=== PATIENT | male | born 1945 | race Caucasian/White ===

== ENCOUNTER → 2017-02-19 | Outpatient (CLI) | payer MEDICARE, BC ==
[~2017-02-19] MED LIST: ATORVASTATIN CA10 MG PO; BENADRYL25 MG PO; CELEBREX200 MG PO; CENTRUM SILVER1 EAC3 PO; CIPRO500 MG PO; COUMADIN2 MG PO; FISH OIL 1,0001 EAC7 PO; HYDROCHLOROTH12.5 M3 PO; HYDROCODON-ACE1 EAC9 PO; LISINOPRIL10 MG PO; LISINOPRIL20 MG PO; LISINOPRIL40 MG PO; LITE COAT ASPI325 M1 PO; METOPROLOL TART25 MG PO; OXYCODONE HCL5 MG PO; PRESERVISION T1 EACH PO; PROCHLORPERAZIN10 MG PO; RANITIDINE HCL300 MG PO; SENNA-TIME S T1 EACH PO; TYLENOL EXTRA500 MG PO; TYLENOL WITH C1 EACH PO; VITAMIN B-6200 MG PO; VITAMIN B12 100MCG PO; VITAMIN D1000 INTUN PO; VITAMIN D5000 UNIT PO; XARELTO10 MG PO
== END | disposition home or self-care (01) ==
LOC: CDC 15:12
DX: R00.1 Bradycardia, unspecified (principal); I49.1 Atrial premature depolarization; R94.31 Abnormal electrocardiogram [ECG] [EKG]; I25.10 Atherosclerotic heart disease of native coronary artery without angina pectoris
CPT/HCPCS: 93000

== ENCOUNTER 2017-03-11 06:31 | Day surgery (SDC) | payer OTHER, BC ==
[~2017-03-11] VITALS: Ht 177.8 cm; Wt 110.0 kg
[~2017-03-11 06:31] MED LIST changes: +AMLODIPINE BESYL5 MG PO; +BAYER CHEWABLE81 MG PO; +CALCIUM 500 MG1 EACH PO; +FUROSEMIDE80 MG PO; +VITAMIN B-12500 MC5 SL; +[UNRECOGNIZED DRUG - OTHER] PO
[2017-03-11 07:01] VITALS: BP 157/78
[2017-03-11 07:14] LABS: HEMATOCRIT 38.4 % (38.0-50.0); MCH 32.8 PG (29.0-34.0); MCHC 34.4 G/DL (30.0-36.0); MCV 95.5 FL (86-99); MEAN PLAT.VOLUME 9.7 uM^3 (9.0-12.4); PLATELET COUNT 221 K/uL (156-360); RBC DIS.WIDTH-CV 13.5 % (11.8-14.6); RBC DIS.WIDTH-SD 47.9 % (39-53); RED BLOOD COUNT 4.02 M/uL (4.00-5.50); WHITE BLOOD COUNT 5.4 K/uL (4.1-10.2)
[2017-03-11 07:29] LABS: ANION GAP 11 MEQ/L (2-14); CHLORIDE 105 MEQ/L (99-109); POTASSIUM 4.2 MEQ/L (3.7-5.4); SAMPLE HEMOLYSIS CHECK 0; SAMPLE ICTERIC CHECK 0; SAMPLE LIPEMIA CHECK 0; SODIUM 139 MEQ/L (136-147)
[2017-03-11 07:34] LABS: GFR ESTIMATE (CALCULATED) 20 mL/min/; GLUCOSE 104 mg/dL (70-99); UREA NITROGEN (BUN) 43 mg/dL (9-23)
[2017-03-11 12:03] VITALS: BP 136/67
[2017-03-11 12:55] VITALS: BP 145/63
== END 2017-03-11 13:17 | disposition home or self-care (01) ==
LOC: SDC 06:31
PROVIDERS: Surgery
DX: I12.0 Hypertensive chronic kidney disease with stage 5 chronic kidney disease or end stage renal disease (principal); N18.6 End stage renal disease; I25.10 Atherosclerotic heart disease of native coronary artery without angina pectoris; Z95.5 Presence of coronary angioplasty implant and graft; K21.9 Gastro-esophageal reflux disease without esophagitis; M19.90 Unspecified osteoarthritis, unspecified site; Z85.46 Personal history of malignant neoplasm of prostate; Z85.51 Personal history of malignant neoplasm of bladder; Z92.21 Personal history of antineoplastic chemotherapy; Z92.3 Personal history of irradiation; Z87.891 Personal history of nicotine dependence; Z96.641 Presence of right artificial hip joint; Z79.82 Long term (current) use of aspirin
CPT/HCPCS: 80048; 85027; J0690; J1644; J2720

== ENCOUNTER 2018-02-15 18:21 | Emergency (ER) | payer OTHER, BC ==
[~2018-02-15] VITALS: Ht 177.8 cm; Wt 106.1 kg
[2018-02-15 18:26] VITALS: BP 132/72
== END 2018-02-15 20:08 | disposition home or self-care (01) ==
LOC: EME 18:21
PROC: 0HQLXZZ Repair Left Lower Leg Skin, External Approach (ICD-10-PCS; principal; 2018-02-15)
DX: S81.812A Laceration without foreign body, left lower leg, initial encounter (principal); W26.9XXA Contact with unspecified sharp object(s), initial encounter; I48.91 Unspecified atrial fibrillation; Z79.01 Long term (current) use of anticoagulants; Z96.649 Presence of unspecified artificial hip joint; Z85.831 Personal history of malignant neoplasm of soft tissue; Z87.891 Personal history of nicotine dependence
CPT/HCPCS: 99281; 99285

== ENCOUNTER 2018-02-16 22:41 | Emergency (ER) | payer OTHER, BC ==
[~2018-02-16] VITALS: Ht 177.8 cm; Wt 106.5 kg
[2018-02-16 23:47] LABS: HEMATOCRIT 32.2 % (38.0-50.0); HEMOGLOBIN 10.7 G/DL (12.5-16.6); MCH 31.8 PG (29.0-34.0); MCHC 33.2 G/DL (30.0-36.0); MCV 95.8 FL (86-99); PLATELET COUNT 161 K/uL (156-360); RBC DIS.WIDTH-CV 14.9 % (11.8-14.6); RBC DIS.WIDTH-SD 50.3 % (39-53); RED BLOOD COUNT 3.36 M/uL (4.00-5.50); WHITE BLOOD COUNT 7.9 K/uL (4.1-10.2)
[2018-02-17 02:18] VITALS: BP 145/71
== END 2018-02-17 02:20 | disposition home or self-care (01) ==
LOC: EME 22:41
PROVIDERS: Emergency Medicine
PROC: 0HQLXZZ Repair Left Lower Leg Skin, External Approach (ICD-10-PCS; principal; 2018-02-16)
DX: S81.812A Laceration without foreign body, left lower leg, initial encounter (principal); X58.XXXA Exposure to other specified factors, initial encounter; D68.9 Coagulation defect, unspecified; Z79.01 Long term (current) use of anticoagulants; I48.91 Unspecified atrial fibrillation; Z86.718 Personal history of other venous thrombosis and embolism
CPT/HCPCS: 85027; 99281; 99284